=== PATIENT | female | born 1955 | race African-American/Black ===

== ENCOUNTER 2017-03-22 22:54 | Emergency (ER) | payer BC ==
[2017-03-23 00:21] LABS: Hematocrit 38 % (35-47); Hemoglobin 12.8 g/dl (12.0-16.0); Mean Corpuscular HGB Conc 34 g/dl (31-36); Mean Corpuscular Hemoglobin 30 pg (27-31); Mean Corpuscular Volume 90 fL (80-97); Mean Platelet Volume 9 um3 (7.4-10.4); Red Blood Count 4.23 10^6/ul (4.0-5.4); Red Cell Distribution Width 12 % (10.5-15); White Blood Count 8.1 10^3/ul (3.5-10.8)
[2017-03-23 00:37] LABS: Albumin 3.9 g/dL (3.2-5.2); BUN/Creatinine Ratio 21.4 (8-20); Calcium 10.4 mg/dL (8.6-10.3); EGFR Non-African American 84.8 (>60); Globulin 3.4 g/dL (2-4); Potassium 3.8 mmol/L (3.5-5.0); Total Bilirubin 0.5 mg/dL (0.2-1.0); Total Protein 7.3 g/dL (6.4-8.9)
[2017-03-23 00:39] LABS: Troponin I 0.01 ng/mL (<0.04)
--- NOTE | 2017-03-23 02:39 | ED ---
[place] Rizzo Alfonso, scribed for Love Monteiro MD on 03/22/17 at 2347 . Shortness of Breath - HPI Summary HPI Summary: This patient is a 61 year old F presenting to [facility] accompanied by two family members with a chief complaint of SOB since 2039 today. The SOB has since resolved and lasted approximately one hour. Pt rates the pain 0/10 in severity. Symptoms aggravated by exertion and alleviated by spontaneous resolution. Pt reports cough, dry mouth, and difficulty swallowing. Pt denies fever, diaphoresis, CP, and calf pain. Pt denies recent travels. Denies PMHx of CAD, DM , HTN, cancer and asthma. Denies FHx of DM, PE, and CAD. PSHX of hysterectomy. PMHx of arthritis. - History of Current Complaint Chief Complaint: EDShortnessOfBreath Time Seen by Provider: 03/22/17 23:28 Hx Obtained From: Patient Onset/Duration: Sudden Onset, Lasting Hours - 2039 today, Resolved Current Severity: Moderate Dyspnea At: Exertion Alleviating Factors: Spontaneous Resolution Associated Signs & Symptoms: Cough (Productive) - Allergy/Home Medications Allergies/Adverse Reactions: Allergies Allergy/AdvReac Type Severity Reaction Status Date / Time No Known Allergies Allergy Verified 03/22/17 23:02 PMH/Surg Hx/FS Hx/Imm Hx Endocrine/Hematology History: Denies: Hx Diabetes Cardiovascular History: Denies: Hx Coronary Artery Disease, Hx Hypertension Respiratory History: Denies: Hx Asthma Musculoskeletal History: Reports: Hx Arthritis - Surgical History Surgery Procedure, Year, and Place: Hysterectomy Infectious Disease History: Denies: Traveled Outside the [place] in Last 30 Days - Family History Known Family History: Positive: Other - Negative PE Negative: Cardiac Disease, Diabetes - Social History Lives: With Family Alcohol Use: None Hx Substance Use: No Hx Tobacco Use: No Review of Systems Negative: Fever, Skin Diaphoresis Positive: Other - Positive difficulty swallowing and dry mouth Negative: Chest Pain Positive: Cough Positive: Other - Negative calf pain All Other Systems Reviewed And Are Negative: Yes Physical Exam Triage Information Reviewed: Yes Vital Signs On Initial Exam: Initial Vitals Temp Pulse Resp BP Pulse Ox 97.0 F 78 16 90/67 100 03/22/17 22:55 03/22/17 22:55 03/22/17 22:55 03/22/17 22:55 03/22/17 22:55 Vital Signs Reviewed: Yes Appearance: Positive: Well-Appearing, No Pain Distress Skin: Positive: Warm, Skin Color Reflects Adequate Perfusion, Dry Eyes: Positive: EOMI, ALEC ENT: Positive: Pharynx normal, TMs normal Neck: Positive: Supple, Nontender Respiratory/Lung Sounds: Positive: Clear to Auscultation, Breath Sounds Present. Negative: Rales, Rhonchi, Wheezes Cardiovascular: Positive: RRR, Other - No gallop. Negative: Murmur, Rub Abdomen Description: Positive: Nontender, No Organomegaly, Other: - No rebound. Negative: Distended, Guarding Bowel Sounds: Positive: Present Musculoskeletal: Positive: Strength/ROM Intact, Other - No edema Neurological: Positive: Sensory/Motor Intact, Alert, Oriented to Person Place, Time, CN Intact II-III - 2-12 Psychiatric: Positive: Affect/Mood Appropriate Diagnostics - Vital Signs Vital Signs Temp Pulse Resp BP Pulse Ox 03/22/17 22:55 97.0 F 78 16 90/67 100 - Laboratory Lab Results: Lab Results 03/23/17 03/23/17 03/23/17 Range/Units 00:13 00:13 00:13 WBC 8.1 (3.5-10.8) 10^3/ul RBC 4.23 (4.0-5.4) 10^6/ul Hgb 12.8 (12.0-16.0) g/dl Hct 38 (35-47) % MCV 90 (80-97) fL MCH 30 (27-31) pg MCHC 34 (31-36) g/dl RDW 12 (10.5-15) % Plt Count 240 (150-450) 10^3/ul MPV 9 (7.4-10.4) um3 Neut % (Auto) 51.8 (38-83) % Lymph % (Auto) 35.1 (25-47) % [place] % (Auto) 7.3 (1-9) % Eos % (Auto) 5.5 (0-6) % Baso % (Auto) 0.3 (0-2) % Absolute Neuts (auto) 4.2 (1.5-7.7) 10^3/ul Absolute Lymphs (auto) 2.8 (1.0-4.8) 10^3/ul Absolute Monos (auto) 0.6 (0-0.8) 10^3/ul Absolute Eos (auto) 0.4 (0-0.6) 10^3/ul Absolute Basos (auto) 0 (0-0.2) 10^3/ul Absolute Nucleated RBC 0.01 10^3/ul Nucleated RBC % 0.1 D-Dimer, Quantitative (Less Than 230) ng/mL Sodium 132 L (133-145) mmol/L Potassium 3.8 (3.5-5.0) mmol/L Chloride 103 (101-111) mmol/L Carbon Dioxide 26 (22-32) mmol/L Anion Gap 3 (2-11) mmol/L BUN 15 (6-24) mg/dL Creatinine 0.70 (0.51-0.95) mg/dL Est GFR ( Amer) 109.0 (>60) Est GFR (Non-Af Amer) 84.8 (>60) BUN/Creatinine Ratio 21.4 H (8-20) Glucose 113 H (70-100) mg/dL Lactic Acid 1.0 (0.5-2.0) mmol/L Calcium 10.4 H (8.6-10.3) mg/dL Total Bilirubin 0.50 (0.2-1.0) mg/dL AST 31 (13-39) U/L ALT 20 (7-52) U/L Alkaline Phosphatase 114 H (34-104) U/L Troponin I 0.01 (<0.04) ng/mL Total Protein 7.3 (6.4-8.9) g/dL Albumin 3.9 (3.2-5.2) g/dL Globulin 3.4 (2-4) g/dL Albumin/Globulin Ratio 1.1 (1-3) 03/23/17 03/23/17 Range/Units 00:13 01:55 WBC (3.5-10.8) 10^3/ul RBC (4.0-5.4) 10^6/ul Hgb (12.0-16.0) g/dl Hct (35-47) % MCV (80-97) fL MCH (27-31) pg MCHC (31-36) g/dl RDW (10.5-15) % Plt Count (150-450) 10^3/ul MPV (7.4-10.4) um3 Neut % (Auto) (38-83) % Lymph % (Auto) (25-47) % [place] % (Auto) (1-9) % Eos % (Auto) (0-6) % Baso % (Auto) (0-2) % Absolute Neuts (auto) (1.5-7.7) 10^3/ul Absolute Lymphs (auto) (1.0-4.8) 10^3/ul Absolute Monos (auto) (0-0.8) 10^3/ul Absolute Eos (auto) (0-0.6) 10^3/ul Absolute Basos (auto) (0-0.2) 10^3/ul Absolute Nucleated RBC 10^3/ul Nucleated RBC % D-Dimer, Quantitative < 200 (Less Than 230) ng/mL Sodium (133-145) mmol/L Potassium (3.5-5.0) mmol/L Chloride (101-111) mmol/L Carbon Dioxide (22-32) mmol/L Anion Gap (2-11) mmol/L BUN (6-24) mg/dL Creatinine (0.51-0.95) mg/dL Est GFR ( Amer) (>60) Est GFR (Non-Af Amer) (>60) BUN/Creatinine Ratio (8-20) Glucose (70-100) mg/dL Lactic Acid (0.5-2.0) mmol/L Calcium (8.6-10.3) mg/dL Total Bilirubin (0.2-1.0) mg/dL AST (13-39) U/L ALT (7-52) U/L Alkaline Phosphatase (34-104) U/L Troponin I 0.00 (<0.04) ng/mL Total Protein (6.4-8.9) g/dL Albumin (3.2-5.2) g/dL Globulin (2-4) g/dL Albumin/Globulin Ratio (1-3) Result Diagrams: 03/23/17 00:13 03/23/17 00:13 Lab Statement: Any lab studies that have been ordered have been reviewed, and results considered in the medical decision making process. - Radiology CXR Radiology Interpretation Completed By: ED Physician - NAD - EKG 0013 Cardiac Rate: NL - BPM 79 EKG Rhythm: Sinus Rhythm EKG Interpretation: No Q-waves. No ST Elevation. Course/Dx - Diagnoses Provider Diagnoses: Shortness of breath Discharge - Discharge Plan Condition: Stable Disposition: HOME The documentation as recorded by the [place] [facility] Alfonso accurately reflects the service I personally performed and the decisions made by me, Love Monteiro MD.
[2017-03-23 02:53] VITALS: BP 112/59
--- NOTE | 2017-03-23 07:33 | RAD ---
INDICATION: Shortness of breath. COMPARISON: None TECHNIQUE: PA and lateral views of the chest were obtained. FINDINGS: The heart and mediastinum are normal in size and contour. The lungs are grossly clear. There is no evidence of large pleural effusion. Visualized bones are normal for the patient's age. There is no radiographic evidence of free air beneath the diaphragm IMPRESSION: No radiographic evidence of acute cardiopulmonary disease.
== END 2017-03-23 03:05 | disposition home or self-care (01) ==
LOC: ED 22:54
DX: R06.02 Shortness of breath (principal); R05 Cough
CPT/HCPCS: 36415; 71020; 80053; 83605; 84484; 85025; 85379; 93005; 99284

== ENCOUNTER 2017-05-08 09:00 | Emergency (ER) | payer BC ==
[2017-05-08 09:18] LABS: Urine Bilirubin Negative (Negative); Urine Glucose Negative (Negative); Urine Nitrite Negative (Negative)
[2017-05-08 09:38] LABS: Hematocrit 40 % (35-47); Hemoglobin 13.8 g/dl (12.0-16.0); Mean Corpuscular HGB Conc 34 g/dl (31-36); Mean Corpuscular Hemoglobin 31 pg (27-31); Mean Corpuscular Volume 89 fL (80-97); Mean Platelet Volume 8 um3 (7.4-10.4); Red Blood Count 4.52 10^6/ul (4.0-5.4); Red Cell Distribution Width 13 % (10.5-15); White Blood Count 7.1 10^3/ul (3.5-10.8)
[2017-05-08] MEDS ORDERED: Acetaminophen TAB* 325 MG PO ONE (09:39)
--- NOTE | 2017-05-08 09:52 | ED ---
GI/ HPI - HPI Summary HPI Summary: 62 female presents to ED with complaints of lower abdominal pain, more on the right side that began ~ 5 days ago. Patient states she also noticed increased urinary frequency. She thought it was possibly a UTI. Denies pain with urination and radiation of pain. Thought she was also constipated however she had a normal bowel movement yesterday 05/07/17 and symptoms did not decrease. Patient denies blood, nausea, vomiting. States pain is a dull ache that is worse with movement and changing positions. Took 1 aleve 3 days ago without much relief of symptoms. Has not related it to to food. Denies nausea, vomiting. Had a hysterectomy, years ago, and is unsure if it was partial or total. Denies any PMHx besides known cholelithiasis and is not currently taking any medications. Denies urinary burning, diarrhea and hematuria. No other complaints at this time. Never had pain like this before besides when she last had a UTI years ago. Denies vaginal discharge, bleeding and genitalia symptoms. Patient does admit to moving heavy things with her foot and pain in groin when she moves her legs, is comfortable when laying still and not moving. States she also feels better when she lifts her stomach/pressure off of her bladder area. - History of Current Complaint Chief Complaint: EDUrogenitalProblems Time Seen by Provider: 05/08/17 09:10 Stated Complaint: POSSIBLE UTI Hx Obtained From: Patient Onset/Duration: Started Days Ago - ~5 Timing: Constant, Lasting Days Severity: Mild Current Severity: Moderate Pain Intensity: 8 Location of Pain: LLQ, Suprapubic Pain Characteristics: Dull, Aching Associated Signs and Symptoms: Positive: Abdominal Pain, UTI Symptoms - urinary frequency. Negative: Nausea, Vomiting, Diarrhea, Fever, Hematuria, Flank Pain, New Sexual Partner Additional Signs & Symptoms: Negative: Vaginal Bleeding, Vaginal Discharge, STD Aggravating Factor(s): Movement Alleviating Factor(s): Position - not changing positions, has no pain, Lying Still - Risk Factors GI Bleed Risk Factor(s): Negative Spontaneous AB Risk Factor(s): Negative Placental Abruption Risk Factor(s): Negative Ectopic Risk Factor(s): Negative Ovarian Torsion Risk Factor(s): Hysterectomy - Allergy/Home Medications Allergies/Adverse Reactions: Allergies Allergy/AdvReac Type Severity Reaction Status Date / Time No Known Allergies Allergy Verified 05/08/17 09:21 Home Medications: Home Medications NK [No Home Medications Reported] 05/08/17 [History Confirmed 05/08/17] PMH/Surg Hx/FS Hx/Imm Hx Endocrine/Hematology History: Denies: Hx Diabetes Cardiovascular History: Denies: Hx Coronary Artery Disease, Hx Hypertension Respiratory History: Denies: Hx Asthma Musculoskeletal History: Reports: Hx Arthritis - Surgical History Surgery Procedure, Year, and Place: Hysterectomy, years ago - Immunization History Immunizations Up to Date: Yes Infectious Disease History: No Infectious Disease History: Denies: Traveled Outside the [place] in Last 30 Days - Family History Known Family History: Positive: Other - Negative PE Negative: Cardiac Disease, Diabetes - Social History Alcohol Use: None Hx Substance Use: No Substance Use Type: Reports: None Hx Tobacco Use: No Smoking Status (MU): Never Smoked Tobacco Review of Systems Constitutional: Negative Cardiovascular: Negative Respiratory: Negative Positive: Abdominal Pain Musculoskeletal: Negative All Other Systems Reviewed And Are Negative: Yes Physical Exam Triage Information Reviewed: Yes Vital Signs On Initial Exam: Initial Vitals Temp Pulse Resp BP Pulse Ox 97 F 84 17 136/67 98 05/08/17 09:04 05/08/17 09:04 05/08/17 09:04 05/08/17 09:04 05/08/17 09:04 Vital Signs Reviewed: Yes Appearance: Positive: Well-Appearing, No Pain Distress, Well-Nourished Skin: Positive: Warm, Skin Color Reflects Adequate Perfusion, Dry. Negative: Cold, Cyanosis @, Pale, Erythema @ Head/Face: Positive: Normal Head/Face Inspection Eyes: Positive: Conjunctiva Clear ENT: Positive: Hearing grossly normal, Pharynx normal Neck: Positive: Supple, Nontender, No Lymphadenopathy Respiratory/Lung Sounds: Positive: Clear to Auscultation, Breath Sounds Present. Negative: Rales, Rhonchi, Wheezes Cardiovascular: Positive: Normal, RRR, Pulses are Symmetrical in both Upper and Lower Extremities. Negative: Murmur, Rub Abdomen Description: Positive: No Organomegaly, Soft, Other: - some non discrete "discomfort" in lower abdomen rlq, llq, suprapubic very minimal. Negative: Bruit, CVA Tenderness (R), CVA Tenderness (L), Distended, Guarding, Peritoneal Signs, Pulsatile Mass Bowel Sounds: Positive: Present Pelvic Exam: Positive: external exam normal - per patient, she declined exam as she has hysterectomy and is not having symptoms, wanted to go to her OBGYN Musculoskeletal: Positive: Normal, Strength/ROM Intact Neurological: Positive: Normal, Sensory/Motor Intact, Alert, Oriented to Person Place, Time, Normal Gait Psychiatric: Positive: Affect/Mood Appropriate - River Coma Scale Coma Scale Total: 15 Diagnostics - Vital Signs Vital Signs Temp Pulse Resp BP Pulse Ox 05/08/17 09:04 97 F 84 17 136/67 98 - Laboratory Lab Results: Lab Results 05/08/17 05/08/17 Range/Units 09:02 09:25 WBC 7.1 (3.5-10.8) 10^3/ul RBC 4.52 (4.0-5.4) 10^6/ul Hgb 13.8 (12.0-16.0) g/dl Hct 40 (35-47) % MCV 89 (80-97) fL MCH 31 (27-31) pg MCHC 34 (31-36) g/dl RDW 13 (10.5-15) % Plt Count 266 (150-450) 10^3/ul MPV 8 (7.4-10.4) um3 Neut % (Auto) 45.6 (38-83) % Lymph % (Auto) 40.8 (25-47) % [place] % (Auto) 6.7 (1-9) % Eos % (Auto) 5.5 (0-6) % Baso % (Auto) 1.4 (0-2) % Absolute Neuts (auto) 3.2 (1.5-7.7) 10^3/ul Absolute Lymphs (auto) 2.9 (1.0-4.8) 10^3/ul Absolute Monos (auto) 0.5 (0-0.8) 10^3/ul Absolute Eos (auto) 0.4 (0-0.6) 10^3/ul Absolute Basos (auto) 0.1 (0-0.2) 10^3/ul Absolute Nucleated RBC 0.01 10^3/ul Nucleated RBC % 0.2 Urine Color Straw Urine Appearance Clear Urine pH 7.0 (5-9) Ur Specific [place] 1.002 L (1.010-1.030) Urine Protein Negative (Negative) Urine Ketones Negative (Negative) Urine Blood Negative (Negative) Urine Nitrate Negative (Negative) Urine Bilirubin Negative (Negative) Urine Urobilinogen Negative (Negative) Ur Leukocyte Esterase Negative (Negative) Urine Glucose Negative (Negative) Result Diagrams: 05/08/17 09:25 05/08/17 09:25 Lab Statement: Any lab studies that have been ordered have been reviewed, and results considered in the medical decision making process. - CT abd/pelvis CT Interpretation: No Acute Changes - 1. NO HYDRONEPHROSIS OR NEPHROLITHIASIS. 2. HEPATOMEGALY. 3. STATUS POST HYSTERECTOMY. CT Interpretation Completed By: Radiologist - Ultrasound No standard instances Ultrasound Interpretation: No Acute Changes - Ovaries not visualized. Patient is status post hysterectomy. Ultrasound Interpretation Completed By: Radiologist IGNACIOU Course/Dx - Course Course Of Treatment: urinalysis obtained and completely negative. CBC/CMP completely normal besides slightly elevated calcium. due to patient's history of hysterectomy obtained transvaginal US to rule out ovarian torsion as patient did not know if she had partial/full or oophorectomy. Also obtained CT abd/ pelvis to rule out renal colic and other abdominal etiology. negative for acute etiologies. No contrast was used due to normal lab work and vitals and complaint of symptoms. no concern for any other emergent etiology at this time. Pelvic exam was declined. given tylenol for pain, patient preference. continue at home tylenol/ibuprofen or aleve and follow up with PCP. aware of worsening signs and symptoms to watch out for, and to return if occur as new symptoms may develop. Fluids and probiotics. May be a muscle strain. - Diagnoses Differential Diagnoses - Female: Cystitis, Diverticulitis, Ovarian Cyst, Ovarian Torsion, Pyelonephritis, Renal Calculi, Urinary Tract Infection, Ureteral Calculi, Other - muscle strain, bladder prolapse Provider Diagnoses: Abdominal pain, Urinary frequency - Physician Notifications Discussed Care Of Patient With: Dr Henao Discharge - Discharge Plan Condition: Stable Disposition: HOME Patient Education Materials: Muscle Strain (ED), Abdominal Pain (ED) Referrals: No Primary Care Phys,NOPCP [Primary Care Provider] - [facility] [place]] Additional Instructions: If your symptoms worsen or new symptoms develop as we discussed (fever, increasing localized pain, vomiting, diarrhea, feeling ill or blood/burning during urination) please return to ED. Follow up with primary care provider. Recommend taking probiotic pills daily or eating georgian yogurt to maintain good GI health. Try taking some ibuprofen for inflammation in case this is a muscle strain. Rest and apply heat to area causing pain. Drink plenty of fluids.
[2017-05-08 09:56] LABS: ALT 22 U/L (7-52); AST 33 U/L (13-39); Albumin 4.2 g/dL (3.2-5.2); Alkaline Phosphatase 109 U/L (34-104); Anion Gap 4 mmol/L (2-11); BUN/Creatinine Ratio 12.3 (8-20); Blood Urea Nitrogen 9 mg/dL (6-24); C Reactive Protein < 1.00 mg/L (< 5.00); CO2 Carbon Dioxide 27 mmol/L (22-32); Calcium 11.6 mg/dL (8.6-10.3); Chloride 106 mmol/L (101-111); EGFR African American 103.6 (>60); EGFR Non-African American 80.5 (>60); Globulin 3.3 g/dL (2-4); Glucose 97 mg/dL (70-100); Lipase < 10 U/L (11.0-82.0); Potassium 4.4 mmol/L (3.5-5.0); Sodium 137 mmol/L (133-145); Total Protein 7.5 g/dL (6.4-8.9)
--- NOTE | 2017-05-08 10:45 | RAD ---
Indication: Pelvic pain. Real-time sonography of the pelvis was performed utilizing endovaginal technique. The patient is status post hysterectomy. The ovaries are not visualized. The patient is unclear whether she has had bilateral oophorectomy. IMPRESSION: Ovaries not visualized. Patient is status post hysterectomy.
--- NOTE | 2017-05-08 11:00 | RAD ---
CLINICAL HISTORY: Left lower abdominal pain COMPARISON: None TECHNIQUE: Multiple contiguous axial CT scans were obtained of the abdomen and pelvis, without intravenous contrast enhancement. Coronal and sagittal multiplanar reformations are submitted for review. Oral contrast was not administered. FINDINGS: The study is limited by the lack of intravenous contrast. This limits evaluation of the solid organs and vasculature. LUNG BASES: The lung bases are clear. LIVER: The liver measures 20.4 cm in long axis. The liver is homogeneous in attenuation. BILE DUCTS: There is no intrahepatic or extrahepatic biliary dilatation. GALLBLADDER: The gallbladder is normal, without pericholecystic inflammatory change. PANCREAS: The pancreas is normal, without mass or ductal dilatation. SPLEEN: Normal in size and appearance. UPPER GI TRACT: Evaluation of the gastrointestinal tract is limited by incomplete gastric distention. The upper GI tract is unremarkable. SMALL BOWEL AND MESENTERY: The small bowel is normal in contour, course, and caliber. There is no obstruction or dilatation. COLON: The colon is normal in contour, course, caliber. There is no pericolonic inflammatory change. There is a tubular, vermiform, hollow viscus that is blind ending, and originates from the cecum, consistent with a normal appendix. There is no periappendiceal inflammatory change. This is best seen on axial images 125-135 ADRENALS: Normal bilaterally. KIDNEYS: The kidneys are normal in shape, size, contour, and axis. There is no hydronephrosis or nephrolithiasis. BLADDER: The bladder is smooth in contour. PELVIC ORGANS: The pelvic organs are not visualized. AORTA: The aorta is normal. IVC: Unremarkable LYMPH NODES: There is no lymphadenopathy by size criteria. ABDOMINAL WALL: There is no evidence for abdominal wall hernia. BONES AND SOFT TISSUES: Degenerative changes are noted along the spine OTHER: None IMPRESSION: 1. NO HYDRONEPHROSIS OR NEPHROLITHIASIS. 2. HEPATOMEGALY. 3. STATUS POST HYSTERECTOMY.
[2017-05-08 11:58] VITALS: BP 130/70
== END 2017-05-08 11:56 | disposition home or self-care (01) ==
LOC: ED 09:00
DX: R10.30 Lower abdominal pain, unspecified (principal); R35.0 Frequency of micturition
CPT/HCPCS: 36415; 74176; 76830; 80053; 81003; 83605; 83690; 85025; 86140; 99282; A9270-GY